=== PATIENT | female | born 1985 | race Caucasian/White ===

== ENCOUNTER 2017-08-09 08:34 | Emergency (ER) | payer SELFPAY ==
[2017-08-09] MEDS ORDERED: DEXAMETHASONE 4 MG/ML VIAL IVP ONE (09:06)
[2017-08-09] MEDS ORDERED: GABAPENTIN 300 MG CAP PO ONE (09:06)
[2017-08-09] MEDS ORDERED: DIAZEPAM 5 MG/ML 1 ML SYR IVP ONE (09:06)
--- NOTE | 2017-08-09 09:06 | EDPHY ---
H & P Stated Complaint: R lower bk pain running down leg "sciatica" x ~2 wks, no trauma Time Seen by Provider: 08/09/17 08:59 HPI/ROS: HPI: This is a 31-year-old female who presents with Chief Complaint: R lower bk pain running down leg "sciatica" x ~2 wks, no trauma Location: Right lower back Quality: Pain Duration: 2 weeks Signs and Symptoms: No bleeding,+ radiation down leg no numbness, no weakness, no tingling, no incontinence, no decreased range of motion, no swelling, no pain , no fever Timing: Severity: Context: Patient reports that she has a history of L4-L5 and L5-S1 laminectomy in 2013 in [place] is where she used to live. She presents today with 2-3 week history of gradually worsening right lower back pain that shoots down into her buttocks on the right lateral thigh and then into the anterior portion of her right lower leg down into her toes. She reports that the pain alternates between numbness and tingling in her all 5 toes. No injury or trauma. 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 She denies any urinary or bowel problems. Reports that any ranges of motion increases her pain. She is having difficulty sleeping at night. She reports that she is taking ibuprofen without any relief. Denies LOC/head injury/ neck pain/dizziness/nausea/vomiting/amnesia. Modifying Factors: See above Comment: ROS: see HPI Constitutional: No fever, no chills, no weight loss Eyes: No blurred vision Respiratory: No shortness of breath, no cough Cardiovascular: No chest pain Gastrointestinal: No nausea, no vomiting no diarrhea Genitourinary: No dysuria Extremities: No myalgias Neurologic: No weakness, no numbness Skin: No rashes Hematologic: No bruising, no bleeding MEDICAL/SURGICAL/SOCIAL HISTORY: Medical history: Generally healthy. Does not take any regular medications. Surgical history: L4,5 laminectomy 2014 Social history: Never smoked. Family history noncontributory. CONSTITUTIONAL: awake and alert, no obvious distress HEENT: Atraumatic and normocephalic. NECK: supple, no midline tenderness, flexion 45 degrees, extension 45 degrees, right and left lateral flexion 45 degrees. No meningismus. Cardiovascular: Normal S1/S2, regular rate, regular rhythm, without murmur rub or gallop. PULMONARY/CHEST: Symmetrical and nontender. no crepitus. Clear to auscultation bilaterally. Good air movement. No accessory muscle usage. ABDOMEN: Soft, nondistended, nontender, no ecchymosis. PELVIC: no pain with rocking; bilateral hips flexion 125 degrees, extension 30 degrees, with no pain internal rotation and no pain external rotation. BACK: No midline tenderness, mild right mid lumbar reproducible paraspinous muscle tenderness; no paraspinous spasm, deep tendon reflexes 2/2, mild pain with right straight leg raise, No foot drop. Achilles reflexes are equal bilaterally. Flexion, extension, lateral rotation is slightly decreased due to pain but maintains relatively good range of motion. Able to walk on heels and toes without difficulty. EXTREMITIES: 2/2 pulses, strength 5/5, DIP/PIP/MCP flexion/extension intact with good light touch sensation. no deformities, no clubbing, no cyanosis or edema. NEUROLOGICAL: no focal neuro deficits. GCS 15. Light touch sensation intact. SKIN: Warm and dry, no erythema. no rash. Good capillary refill. Source: Patient Exam Limitations: No limitations - Personal History Current Tetanus/Diphtheria Vaccine: No Current Tetanus Diphtheria and Acellular Pertussis (TDAP): No - Medical/Surgical History Hx Asthma: No Hx Chronic Respiratory Disease: No Hx Diabetes: No Hx Cardiac Disease: No Hx Renal Disease: No Hx Cirrhosis: No Hx Alcoholism: No Hx HIV/AIDS: No Hx Splenectomy or Spleen Trauma: No Other PMH: L4,5 laminectomy 2013 - Social History Smoking Status: Never smoked Constitutional: Initial Vital Signs Temperature (C) 36.5 C 08/09/17 08:37 Heart Rate 78 08/09/17 08:37 Respiratory Rate 16 08/09/17 08:37 Blood Pressure 124/90 H 08/09/17 08:37 O2 Sat (%) 97 08/09/17 08:37 O2 Delivery Mode Room Air Allergies/Adverse Reactions: Penicillins Allergy (Verified 08/09/17 08:36) Home Medications: Medication Instructions Recorded Diazepam [Valium 5 MG (*)] 5 mg PO Q8 PRN #10 tab 08/09/17 Meloxicam 08/09/17 methylPREDNISolone [Medrol Dose 1 each PO AD #0 ea 05/08/18 Angle] oxyCODONE/APAP 5/325 [Percocet 1 - 2 tab PO Q4H PRN #10 tab 08/09/17 5/325 (*)] Medical Decision Making - Diagnostics Imaging Results: Imaging Impressions Lumbar Spine X-Ray 08/09/17 09:06 Impression: 1. Levoscoliosis. 2. L4-L5 and L5-S1 mild degenerative disk disease. 3. No spondylolisthesis. 4. Consider MRI lumbar spine if clinically indicated. ED Course/Re-evaluation: Long discussion with patient regarding imaging studies. Patient prefers to be referred to Neurosurgery with outpatient follow-up and if needed MRI lumbar spine performed outpatient. Patient is not exhibiting any neurovascular compromise or signs of cauda equina syndrome. I believe it is reasonable not to obtain an emergent MRI in the emergency room at this time. Given IV Valium, IV Decadron, p.o. Gabapentin with adequate pain relief 1024: Lumbosacral x-ray my read shows narrowing at L3-L4, L5-S1 with moderate stool burden. 1026: Reassessed patient. reviewed xrays at bedside. pain adequate relief. Ambulatory at bedside without deficits. No signs of neurovascular compromise/tenting of skin/compartment syndrome/ extremities and joints examined above and below area of concern and are neurovascularly intact/epidural hematoma/diskitis. This patient was seen under the supervision of my secondary supervising physician. I evaluated care for this patient independently. Discussed this patient with Dr. Iqbal who did not see the patient. Differential Diagnosis: Back pain including but not limited to muscular pain, herniated disc, spine fracture, intra-abdominal causes and urinary tract infection. - Data Points Medications Given: Discontinued Medications Dexamethasone (Decadron Injection) 8 mg IVP EDNOW ONE Stop: 08/09/17 09:07 Last Admin: 08/09/17 09:37 Dose: 8 mg Diazepam (Valium) 5 mg IVP EDNOW ONE Stop: 08/09/17 09:07 Last Admin: 08/09/17 09:38 Dose: 5 mg Gabapentin (Neurontin) 600 mg PO EDNOW ONE Stop: 08/09/17 09:07 Last Admin: 08/09/17 09:37 Dose: 600 mg Departure - Departure Disposition: Home, Routine, Self-Care Clinical Impression: Lumbar radiculopathy, acute, History of lumbar laminectomy, Lumbar back pain with radiculopathy affecting right lower extremity, Lumbar degenerative disc disease Condition: Good Instructions: Oxycodone/Acetaminophen (By mouth), Diazepam (By mouth), Methylprednisolone (By mouth), Lumbar Radiculopathy (ED) Additional Instructions: 1) Activity: Limit activity to pain tolerance. Activity resulting in pain should be avoided. 2) Please avoid lifting objects greater than 10 lb until your back pain has resolved. 3) take Medrol Dosepak, Valium every 8 hr as needed for muscle spasm, Percocet as needed for severe breakthrough pain. 4) Follow-up with Neurosurgery in the next 7-10 days at which time they will recommend with you conservative management versus MRI lumbar spine versus further adjuvant therapy. Return to the ER immediately if you have new or worsening back pain, fevers/ chills, flu like symptoms, incontinence or inability to urinate or defecate, weakness, paralysis, or any other symptom that concerns you Referrals: Martínez Caballero MD [Medical Doctor] - As per Instructions Stand Alone Forms: Work Excuse Prescriptions: Diazepam [Valium 5 MG (*)] 5 mg PO Q8 PRN #10 tab PRN Reason: Spasms methylPREDNISolone [Medrol Dose Angel] 1 each PO AD #0 ea oxyCODONE/APAP 5/325 [Percocet 5/325 (*)] 1 - 2 tab PO Q4H PRN #10 tab PRN Reason: Pain, Severe
[2017-08-09 10:36] VITALS: BP 118/82
== END 2017-08-09 10:34 | disposition home or self-care (01) ==
DX: M51.16 Intervertebral disc disorders with radiculopathy, lumbar region (principal); Z98.890 Other specified postprocedural states
CPT/HCPCS: 96374; J1100; J3360

== ENCOUNTER 2018-04-23 15:52 | Emergency (ER) | payer SELFPAY ==
[2018-04-23] MEDS ORDERED: KETOROLAC 15 MG/1 ML SDV IVP ONE (16:37)
[2018-04-23] MEDS ORDERED: CYCLOBENZAPRINE 10 MG TAB PO ONE (16:37)
[2018-04-23] MEDS ORDERED: ACETAMINOPHEN 500 MG TAB PO ONE (16:37)
[2018-04-23] MEDS ORDERED: LIDOCAINE 4%/MENTHOL 1% PATCH TD ONE (16:37)
[2018-04-23] MEDS ORDERED: DEXAMETHASONE 4 MG/ML VIAL IVP ONE (16:37)
--- NOTE | 2018-04-23 17:13 | EDPHY ---
H & P Time Seen by Provider: 04/23/18 16:21 HPI/ROS: CHIEF COMPLAINT: Back pain, sciatic pain HISTORY OF PRESENT ILLNESS: 32-year-old female with a history of an L4-L5 and L5-S1 laminectomy presents reporting pain in the right lower back with discomfort which radiates into her buttock, down the posterior aspect of her thigh, into the calf, and across the top of the foot. She also reports numbness and tingling into the right leg and right foot. No urinary complaints. No incontinence, no difficulty with bowel movements, no constipation. She states that since her surgery, over the last 2 years, she has had intermittent episodes of flares of this sciatic type pain. Patient reports she thinks that this sciatic pain seems to occur when she is under stress. No specific back trauma that she can identify. She has been taking ibuprofen with minimal relief. She took an oxycodone yesterday. No significant weakness in the leg. No intercurrent trauma, no falls, no concerns about bony injuries. No urinary complaints. REVIEW OF SYSTEMS: A comprehensive 10 system review of systems was reviewed and is otherwise negative aside from elements mentioned in the history of present illness and medical decision making. PAST MEDICAL HISTORY: Prior back surgery. SOCIAL HISTORY: Nonsmoker. Reports she recently broke up with her long-time boyfriend. General appearance: Uncomfortable appearing. Preferring to lay on her left side. HEENT: Benign. Chest: Lungs are clear. Heart: Regular rate and rhythm. Focused examination of back: No trauma is noted. No tenderness to palpation along the spine. Tenderness to the right of L5. Neurological exam: Straight leg raise test is negative bilaterally. Hip flexion, knee extension, knee flexion, dorsiflexion and plantar flexion are 5/ 5 bilaterally. EHL 5 over 5. Sensation is intact to light touch throughout. 2 + knee and ankle jerk bilaterally. Vascular exam: Dorsalis pedis and posterior tibial pulses are intact. Brisk capillary refill. Smoking Status: Never smoked Constitutional: Initial Vital Signs Temperature (C) 36.9 C 04/23/18 15:56 Heart Rate 66 04/23/18 15:56 Respiratory Rate 18 04/23/18 15:56 Blood Pressure 141/94 H 04/23/18 15:56 O2 Sat (%) 97 04/23/18 15:56 O2 Delivery Mode Room Air Allergies/Adverse Reactions: Penicillins Allergy (Verified 08/09/17 08:36) Home Medications: Medication Instructions Recorded Cyclobenzaprine [Flexeril 10 MG 10 mg PO TID PRN #20 tab 04/23/18 (RX)] methylPREDNISolone [Medrol Dose 4 mg PO DAILY #1 each 04/23/18 Angel] Medical Decision Making ED Course/Re-evaluation: 32-year-old female presenting with sciatic type radicular pain. On examination she has good strength, although movement of the leg causes increase in the pain. No weakness. No numbness or tingling. Reflexes are intact. Patient received Toradol IM, Flexeril p.o., Tylenol p. O., and a lidocaine patch. She declined gabapentin as she states it makes her quite dizzy. On re-examination she reports some improvement in her pain but still feels like there is significant spasm. She received Valium 5 mg p.o.. She was discharged with a friend and received hydrocodone as a prepack. She is given referral to Neurosurgery. Please see the discharge instructions. Differential Diagnosis: After history was obtained and physical exam performed, the differential for back pain was considered including but not limited to muscular pain, herniated disc, spine fracture, intra-abdominal causes, and urinary tract infection. - Data Points Medications Given: Discontinued Medications Acetaminophen (Tylenol) 1,000 mg PO EDNOW ONE Stop: 04/23/18 16:38 Last Admin: 04/23/18 16:55 Dose: 1,000 mg Hydrocodone Bitart/Acetaminophen ([place] 5/325mg Prepack#6) 1 btl TAKEHOME EDNOW ONE Stop: 04/23/18 17:41 Last Admin: 04/23/18 17:58 Dose: 1 btl Cyclobenzaprine HCl (Flexeril) 10 mg PO EDNOW ONE Stop: 04/23/18 16:38 Last Admin: 04/23/18 16:56 Dose: 10 mg Cyclobenzaprine HCl (Flexeril 10 Mg Prepack#3) 1 btl TAKEHOME EDNOW ONE Stop: 04/23/18 17:41 Last Admin: 04/23/18 17:59 Dose: 1 btl Dexamethasone (Decadron Injection) 8 mg IVP EDNOW ONE Stop: 04/23/18 16:38 Last Admin: 04/23/18 16:56 Dose: 8 mg Diazepam (Valium) 5 mg PO EDNOW ONE Stop: 04/23/18 17:41 Last Admin: 04/23/18 17:57 Dose: 5 mg Ketorolac Tromethamine (Toradol) 15 mg IVP EDNOW ONE Stop: 04/23/18 16:38 Last Admin: 04/23/18 16:56 Dose: 15 mg Miscellaneous Medication (Icy Hot Lidocaine/Menthol 4%/1% Patch) 1 patch TD EDNOW ONE Stop: 04/23/18 16:38 Last Admin: 04/23/18 17:01 Dose: 1 patch Departure - Departure Disposition: Home, Routine, Self-Care Clinical Impression: Sciatica Qualifiers: Laterality: right Qualified Code(s): M54.31 - Sciatica, right side Condition: Good Instructions: Hydrocodone/Acetaminophen (By mouth), Cyclobenzaprine (By mouth) , Sciatica (ED), Lumbar Radiculopathy (ED), Lower Back Exercises (ED) Additional Instructions: Musculoskeletal pain is often treated with anti-inflammatories, muscle relaxants , and pain medications. 1. I recommend Ibuprofen (Motrin, Advil) or Naproxen Sodium (Aleve) for pain and anti-inflammatory effects. You may take either one, but do not take both. Your dose is: Ibuprofen 600 mg every 6-8 hours with food. OR Naproxen Sodium (Aleve) 220 mg every 12 hours. Please take the 1st dose of ibuprofen no sooner than 11:00 p.m.. You have also been given a prescription for a Medrol Dosepak to use as directed to treat inflammation. Please begin taking this tomorrow. 2. For muscle relaxation, you been given a prescription of Flexeril. Please take this as directed. It may make you sleepy. 3. For pain relief, I suggest high-dose Tylenol (650mg-1000mg of Tylenol) up to 3 times a day. Not exceed 3000 mg in a 24 hour period. I also suggest lidocaine patches. 4% lidocaine patches are available over-the- counter. Apply ice for 20-30 minutes every 2-3 hours for the next 48 hours. After 48 hours, a heating pad or hot tub may feel better. Please follow up with your primary care physician if you're not improving as expected in the next several days. You have also been given a referral to Neurosurgery. Consider physical therapy or chiropractic followup for persistent discomfort. Return to the emergency department if you experience significantly worsening pain, pain radiating into the legs, weakness, numbness or tingling, difficulties with bowel or bladder, fever, nausea, vomiting, or other concerns. Referrals: NONE *PRIMARY CARE P,. [Primary Care Provider] - As per Instructions Martínez Caballero MD [Medical Doctor] - As per Instructions Prescriptions: Cyclobenzaprine [Flexeril 10 MG (RX)] 10 mg PO TID PRN #20 tab PRN Reason: Muscle Spasms methylPREDNISolone [Medrol Dose Angel] 4 mg PO DAILY #1 each
[2018-04-23] MEDS ORDERED: CYCLOBENZAPRINE 10MG PREPACK#3 BTL TAKEHOME ONE (17:40)
[2018-04-23] MEDS ORDERED: HYDROCOD/APAP 5/325 PREPACK#6 BTL TAKEHOME ONE (17:40)
[2018-04-23] MEDS ORDERED: DIAZEPAM 5 MG TAB PO ONE (17:40)
[2018-04-23 18:04] VITALS: BP 132/62
[2018-04-23] MEDS ORDERED: PATCH REMOVAL 1 EA PATCH TD SCH (21:00)
== END 2018-04-23 18:04 | disposition home or self-care (01) ==
DX: M54.41 Lumbago with sciatica, right side (principal)
CPT/HCPCS: 96374; J1100; J1885

== ENCOUNTER 2018-06-12 12:46 | Emergency (ER) | payer MEDICAID ==
--- NOTE | 2018-06-12 13:46 | EDPHY ---
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, L4,5 laminectomy 2013 - Social History Smoking Status: Never smoked Time Seen by Provider: 06/12/18 13:39 HPI/ROS: HPI: This is a 32-year-old female who presents with Chief Complaint: Lower back pain and right radiculopathy Location: Lower back Quality: Pain Duration: Several weeks Signs and Symptoms: No bleeding, + radiation, + numbness, no weakness, + tingling, no incontinence, no decreased range of motion, no swelling, + pain, no fever Timing: Worse in the last few days Severity: 11/11 Context: Patient reports that 4 years ago in [place] she had a micro diskectomy and laminectomy at L4-L5 presents today with lower back pain that radiates into her right leg. She reports that her foot and toes are numb and tingling. She reports that flexion and extension increases her pain. She is ambulatory without any deficits. She went to follow up with her orthopedist/ Spine doctor and he is no longer with the practice. She reports that 1 week ago she fell while skiing and believes that she may have caused "in injury to the disc below her her prior surgery." Denies LOC/head injury/neck pain/ dizziness/nausea/vomiting/amnesia/change in bowel or bladder habits. Modifying Factors: Mobic Comment: ROS: A comprehensive 10 system review of systems is otherwise negative aside from elements mentioned in the history of present illness. 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 CONSTITUTIONAL: Well-developed, well-nourished young adult white female sitting cross-legged on the ER stretcher, awake and alert, no obvious distress HEENT: Atraumatic and normocephalic. NECK: supple, no midline tenderness. Cardiovascular: Normal S1/S2, regular rate, regular rhythm, without murmur rub or gallop. PULMONARY/CHEST: Symmetrical and nontender. no crepitus. Clear to auscultation bilaterally. Good air movement. No accessory muscle usage. ABDOMEN: Soft, nondistended, nontender, no ecchymosis. PELVIC: no pain with rocking; bilateral hips flexion 125 degrees, extension 30 degrees, with no pain internal rotation and no pain external rotation. BACK: Mild midline tenderness, no paraspinous spasm, deep tendon reflexes 2/2, moderate pain with straight leg raise, No foot drop. Achilles reflexes are equal bilaterally. Able to walk on toes with minimal difficulty. EXTREMITIES: 2/2 pulses, strength 5/5, DIP/PIP/MCP flexion/extension intact with good light touch sensation. no deformities, no clubbing, no cyanosis or edema. NEUROLOGICAL: no focal neuro deficits. GCS 15. Light touch sensation intact. SKIN: Warm and dry, tattoo lower back, no erythema. no rash. Good capillary refill. (Sole Vaughn) Constitutional: Initial Vital Signs Temperature (C) 36.6 C 06/12/18 13:02 Heart Rate 86 06/12/18 13:02 Respiratory Rate 16 06/12/18 13:02 Blood Pressure 131/98 H 06/12/18 13:02 O2 Sat (%) 94 06/12/18 13:02 O2 Delivery Mode Room Air Allergies/Adverse Reactions: cephalexin [From Keflex] Allergy (Verified 06/12/18 13:05) latex Allergy (Verified 06/12/18 13:06) Penicillins Allergy (Verified 06/12/18 13:05) Home Medications: Medication Instructions Recorded Cyclobenzaprine [Flexeril 10 MG 10 mg PO TID PRN #15 tab 06/12/18 (*)] Meloxicam 06/12/18 methylPREDNISolone [Medrol Dose 1 each PO AD #1 ea 06/12/18 Angel] oxyCODONE/APAP 5/325 [Percocet 1 - 2 tab PO Q4H PRN #10 tab 06/12/18 5/325 (*)] Medical Decision Making ED Course/Re-evaluation: Vital signs reviewed and stable upon arrival. Due to midline tenderness; history of back surgery; MRI lumbar spine ordered 1534: Called by radiologist, Dr. Sanchez, who reports MRI of the lumbar spine shows L4, L5, L6 disc herniation with moderate central canal stenosis. There is an old compression fracture L5 noted. No signs of neurovascular compromise/tenting of skin/compartment syndrome/ extremities and joints examined above and below area of concern and are neurovascularly intact/cauda equina syndrome/saddle anesthesia. Ambulating without difficulty at discharge. Neurosurgery follow-up. This patient was seen under the supervision of my secondary supervising physician. I evaluated care for this patient independently. (Sole Vaughn) The patient was evaluated and managed by the physician warehouse assistant. I have reviewed this chart and I agree with the findings and plan of care as documented , as indicated by my signature. I am the secondary supervising physician. ( Jacquelyn Gallegos) Differential Diagnosis: Back pain including but not limited to muscular pain, herniated disc, spine fracture, intra-abdominal causes and urinary tract infection. (Sole Vaughn) Departure - Departure Disposition: Home, Routine, Self-Care Clinical Impression: L4-L5 disc bulge, Herniation of intervertebral disc between L5 and S1, Lumbar canal stenosis, History of compression fracture of spine Condition: Good Instructions: Oxycodone/Acetaminophen (By mouth), Cyclobenzaprine (By mouth), Methylprednisolone (By mouth), Lumbar Disc Herniation (ED) Additional Instructions: Take Medrol Dosepak as directed. Take Tylenol 650 mg every 4 hours and/or Ibuprofen 600 mg every 8 hours with food as needed for pain. Use Percocet every 6 hours as needed for severe/break through pain. Do not use Tylenol and Percocet concomitantly. Use Flexeril every 6-8 hours as needed for muscle spasm. Follow up with Neurosurgery in 5-7 days at which time they will evaluate and recommend with you if conservative management versus surgery is indicated. Referrals: Martínez Caballero MD [Medical Doctor] - As per Instructions Prescriptions: Cyclobenzaprine [Flexeril 10 MG (*)] 10 mg PO TID PRN #15 tab PRN Reason: Spasms methylPREDNISolone [Medrol Dose Angel] 1 each PO AD #1 ea oxyCODONE/APAP 5/325 [Percocet 5/325 (*)] 1 - 2 tab PO Q4H PRN #10 tab PRN Reason: Pain, Severe
[2018-06-12 16:09] VITALS: BP 126/85
== END 2018-06-12 16:29 | disposition home or self-care (01) ==
DX: M51.27 Other intervertebral disc displacement, lumbosacral region (principal); M51.26 Other intervertebral disc displacement, lumbar region; M48.061 Spinal stenosis, lumbar region without neurogenic claudication

== ENCOUNTER 2018-06-21 12:46 | Day surgery (SDC) | payer MEDICAID ==
[2018-06-21] MEDS ORDERED: NALOXONE HCL 0.4 MG/ML INJ IVP PRN (12:53)
[2018-06-21] MEDS ORDERED: MIDAZOLAM 2 MG/2 ML VIAL IVP PRN (12:53)
[2018-06-21] MEDS ORDERED: FLUMAZENIL 0.5 MG/5 ML MDV IVP PRN (12:53)
[2018-06-21] MEDS ORDERED: fentaNYL 100 MCG/2 ML INJ IVP PRN (12:53)
[2018-06-21] MEDS ORDERED: NS 1,000 ML IV SCH (13:00)
--- NOTE | 2018-06-21 13:45 | PDRADPRE ---
Radiology History & Physical Indication for procedure: back pain Home medications: Meloxicam 15 mg PO DAILY 06/12/18 [Last Taken 1 Day Ago ~06/20/18] Allergies/Adverse Reactions: cephalexin [From Keflex] Allergy (Verified 06/12/18 13:05) latex Allergy (Verified 06/12/18 13:06) Penicillins Allergy (Verified 06/12/18 13:05) Mental status: A&Ox3
--- NOTE | 2018-06-21 13:45 | PDPROPOC ---
Sedation Plan of Care ASA Classification: ASA 2 Mallampati Score: Class 2 Mallampati Reference Image:
[2018-06-21] MEDS ORDERED: ONDANSETRON 4 MG/2 ML VIAL IVP PRN (14:30)
[2018-06-21] MEDS ORDERED: ACETAMINOPHEN 325 MG TAB PO PRN (14:30)
--- NOTE | 2018-06-21 14:30 | PDRADPN ---
Radiology Procedure Note Date of Procedure: 06/21/18 Radiologist: Katie Santacruz Anesthesia: IV Sedation Pre-op Diagnosis: right leg pain and paresthesia Procedure: L4-L5 JOSHUA, right L5 SNRB Inf/Abcess present in the surg proc area at time of surgery?: No
[2018-06-21 15:36] VITALS: BP 116/84
[2018-06-23] MEDS ORDERED: IOPAMIDOL (ISOVUE-M 300) 15 ML VIAL ONE (08:00)
== END 2018-06-21 15:53 | disposition home or self-care (01) ==
LOC: FIMAGING 12:46
PROVIDERS: ATTEND Radiology Diagnostic Radiology
PROC: 3E0S3BZ Introduction of Anesthetic Agent into Epidural Space, Percutaneous Approach (ICD-10-PCS; principal; 2018-06-21 14:40)
PROC: BR191ZZ Fluoroscopy of Lumbar Spine using Low Osmolar Contrast (ICD-10-PCS; principal; 2018-06-21 14:40)
PROC: 3E0S33Z Introduction of Anti-inflammatory into Epidural Space, Percutaneous Approach (ICD-10-PCS; principal; 2018-06-21 14:40)
DX: M54.16 Radiculopathy, lumbar region (principal)
CPT/HCPCS: J2250; J2310; J3010; Q9967

== ENCOUNTER 2018-07-04 23:23 | Emergency (ER) | payer MEDICAID ==
--- NOTE | 2018-07-04 23:41 | EDPHY ---
H & P Stated Complaint: back/leg pain Time Seen by Provider: 07/04/18 23:41 HPI/ROS: HPI CHIEF COMPLAINT: Back pain HISTORY OF PRESENT ILLNESS: Patient is a 32-year-old female, she has a history of radicular back pain. She had a laminectomy L4-L5 years ago, suffers from back pain and sciatica. She recently in June 22 had a injection in her back for back pain. Over the past 2 days she has had increasing back pain, describes sharp stabbing radiating down her right gluteus, down her right leg. She denies any fever, denies saddle anesthesia, denies leg weakness, denies bowel or bladder incontinence. No signs of acute cauda equina on exam. Dates for past 2 days she has had increasing pain. She has not take anything for this she denies taking her meloxicam and Flexeril as prescribed. Past Medical History: L4/L5 laminectomy, sciatica, back pain Past Surgical History: L4-L5 laminectomy, neuroma removal from knee Social History: Denies drugs, denies alcohol denies tobacco. Family History: Denies ROS REVIEW OF SYSTEMS: 10 Systems were reviewed and negative with the exception of the elements mentioned in the history of present illness. Exam Constitutional nontoxic, nad, vss, triage nursing summary reviewed, vital signs reviewed, awake/alert. Eyes normal conjunctivae and sclera, EOMI, PERRLA. HENT normal inspection, atraumatic, moist mucus membranes, no epistaxis, neck supple/ no meningismus, no raccoon eyes. Respiratory clear to auscultation bilaterally, normal breath sounds, no respiratory distress, no wheezing. Cardiovascular rate normal, regular rhythm, no murmur, no edema, distal pulses normal. Gastrointestinal soft, non-tender, no rebound, no guarding, normal bowel sounds, no distension, no pulsatile mass. Genitourinary no CVA tenderness. Musculoskeletal no significant midline back pain, old scar present lumbar spine , mild tender palpation paravertebral lumbar spine, no leg weakness, good distal pulse, good reflexes, able to range her legs appropriately, left off bed without any weakness, no midline vertebral tenderness, full range of motion, no calf swelling, no tenderness of extremities, no meningismus, good pulses, neurovascularly intact. Skin pink, warm, & dry, no rash, skin atraumatic. Neurologic awake, alert and oriented x 3, AAOx3, moves all 4 extremities equally, motor intact, sensory intact, CN II-XII intact, normal cerebellar, normal vision, normal speech. Psychiatric normal mood/affect. Denies SI or HI. Heme/Lymph/Immune no lymphadenopathy. Differential Diagnosis: Includes but is not limited to in a particular order lumbar radiculopathy, sciatica, nerve root compression, annular tear, compression fracture, sciatica, acute on chronic pain Medical Decision Making: Plan for this patient IV establishment basic blood draw, IV fluids, IV Decadron IV Toradol, IV Dilaudid for pain control re- evaluate. X-ray lumbar spine. Re-evaluation: Patient denies Alcohol tonight. She got IV fluids/iv dilaudid for acute pain control as she appears in pain when she arrived. However, Patient's Serum alcohol level 434 at 1:00 a.m.. 1:00 a.m. patient here in the emergency room with back pain. Denies any trauma. She received 0.5 mg IV Dilaudid Decadron and Toradol earlier. She denies any alcohol intake tonight on initial exam/evaluation. However did notice while examining her she had somewhat of an alcohol odor. Her serum alcohol level resulted at 434. I asked her multiple times if she had anything to drink and she denied this. I will observe her here until she is more sober can be safe from discharge, however at this time 1:00 a.m. She is laughing and giggling in the room with her friend, not sleepy and does not appear very intoxicated despite serum level. She does not appear to be in any distress or significant pain. She is moving both legs appropriately. No leg weakness on exam. X-ray of the lumbar spine negative for acute fracture malalignment. Image interpreted by myself. 0415AM: Patient requesting multiple times to be discharged. She is clinically sober on exam. Her friend at bedside would like to take her home. I did encourage her to stay in the Er for re-evaluation this morning of her back pain, given how high her serum alcohol level was when she came in. However she is refusing to do so, and state she wants to leave and does not want to stay in the Er any-further. It is noted upon arrival: She has no red flags on exam no weakness of her legs, no saddle anesthesia, no fever, no bowel bladder incontinence. Given her high alcohol intoxication when she initially arrived here 434 around 1 :00 a.m. She has sobered nicely here in the emergency room, was kept for close to 5 hrs for observation. She now answers questions appropriately she has a stable gait without ataxia. We have given her alcohol resources, I also offered her to go to detox however she has declined this. She wants to go home with her friend at bedside. As for her back pain, she denies severe back pain at this time. No leg weakness on exam, normal gait. She will need to sign out AMA, as I wanted to keep her further to re-evaluated her. However she declined this and is sober enough to be discharged safely. I Do recommend she follows up with primary care doctor about back pain. Additionally alcohol cessation counseling provided. Alcohol resources provided. Counseled and gave resources for alcohol. 0425AM: patient ambulted with a steady gait without assistance out of the Er. Source: Patient - Personal History LMP (Females 10-55): Now Current Tetanus Diphtheria and Acellular Pertussis (TDAP): Yes - Medical/Surgical History Hx Asthma: No Hx Chronic Respiratory Disease: No Hx Diabetes: No Hx Cardiac Disease: No Hx Renal Disease: No Hx Cirrhosis: No Hx Alcoholism: No Hx HIV/AIDS: No Hx Splenectomy or Spleen Trauma: No Other PMH: neuroma removed from L knee, L4,5 laminectomy 2014 - Social History Smoking Status: Former smoker Constitutional: Initial Vital Signs Temperature (C) 37 C 07/04/18 23:26 Heart Rate 93 07/04/18 23:26 Respiratory Rate 20 07/04/18 23:26 Blood Pressure 143/104 H 07/04/18 23:26 O2 Sat (%) 99 07/04/18 23:26 O2 Delivery Mode Room Air O2 (L/minute) 2 Allergies/Adverse Reactions: cephalexin [From Keflex] Allergy (Verified 07/04/18 23:26) latex Allergy (Verified 07/04/18 23:26) Penicillins Allergy (Verified 07/04/18 23:26) Home Medications: Medication Instructions Recorded Cyclobenzaprine [Flexeril 10 MG 10 mg PO TID PRN #15 tab 06/12/18 (*)] Meloxicam 15 mg PO DAILY 06/12/18 methylPREDNISolone [Medrol Dose 1 each PO AD #1 ea 06/12/18 Angel] oxyCODONE/APAP [Percocet 1 - 2 tab PO Q4H PRN #10 tab 06/12/18325 (*)] Medical Decision Making - Data Points Laboratory Results: Laboratory Results 07/05/18 00:07 07/05/18 00:07 07/05/18 07/05/18 00:07 00:07 WBC 6.75 10^3/uL 10^3/uL (3.80-9.50) RBC 4.75 10^6/uL 10^6/uL (4.18-5.33) Hgb 15.4 g/dL g/dL (12.6-16.3) Hct 43.8 % % (38.0-47.0) MCV 92.2 fL fL (81.5-99.8) MCH 32.4 pg pg (27.9-34.1) MCHC 35.2 g/dL g/dL (32.4-36.7) RDW 12.2 % % (11.5-15.2) Plt Count 151 10^3/uL 10^3/uL (150-400) MPV 10.0 fL fL (8.7-11.7) Neut % (Auto) 66.3 % % (39.3-74.2) Lymph % (Auto) 21.3 % % (15.0-45.0) [place] % (Auto) 11.4 % % (4.5-13.0) Eos % (Auto) 0.1 % L % (0.6-7.6) Baso % (Auto) 0.6 % % (0.3-1.7) Nucleat RBC Rel Count 0.0 % % (0.0-0.2) Absolute Neuts (auto) 4.47 10^3/uL 10^3/uL (1.70-6.50) Absolute Lymphs (auto) 1.44 10^3/uL 10^3/uL (1.00-3.00) Absolute Monos (auto) 0.77 10^3/uL 10^3/uL (0.30-0.80) Absolute Eos (auto) 0.01 10^3/uL L 10^3/uL (0.03-0.40) Absolute Basos (auto) 0.04 10^3/uL 10^3/uL (0.02-0.10) Absolute Nucleated RBC 0.00 10^3/uL 10^3/uL (0-0.01) Immature Gran % 0.3 % % (0.0-1.1) Immature Gran # 0.02 10^3/uL 10^3/uL (0.00-0.10) Sodium 146 mEq/L H mEq/L (135-145) Potassium 4.1 mEq/L mEq/L (3.5-5.2) Chloride 106 mEq/L mEq/L (97-110) Carbon Dioxide 20 mEq/l L mEq/l (22-31) Anion Gap 20 mEq/L H mEq/L (6-14) BUN 16 mg/dL mg/dL (7-23) Creatinine 0.7 mg/dL mg/dL (0.6-1.0) Estimated GFR > 60 Glucose 90 mg/dL mg/dL (70-100) Calcium 9.4 mg/dL mg/dL (8.5-10.4) Ethyl Alcohol 434 mg/dL H* mg/dL (0-10) Medications Given: Discontinued Medications Dexamethasone (Decadron Injection) 10 mg IVP EDNOW ONE Stop: 07/05/18 00:00 Last Admin: 07/05/18 00:08 Dose: 10 mg Hydromorphone HCl (Dilaudid) 0.5 mg IVP EDNOW ONE Stop: 07/04/18 23:59 Last Admin: 07/05/18 00:08 Dose: 0.5 mg Sodium Chloride (Ns) 1,000 mls @ 0 mls/hr IV EDNOW ONE; Wide Open PRN Reason: Protocol Stop: 07/04/18 23:59 Last Admin: 07/05/18 00:08 Dose: 1,000 mls Ketorolac Tromethamine (Toradol) 15 mg IVP EDNOW ONE Stop: 07/05/18 00:00 Last Admin: 07/05/18 00:08 Dose: 15 mg Ondansetron HCl (Zofran) 4 mg IVP EDNOW ONE Stop: 07/04/18 23:59 Last Admin: 07/05/18 00:08 Dose: 4 mg Departure - Departure Disposition: Against Medical Advice Clinical Impression: Alcohol intoxication Qualifiers: Complication of substance-induced condition: uncomplicated Qualified Code(s): F10.920 - Alcohol use, unspecified with intoxication, uncomplicated Back pain Qualifiers: Back pain location: low back pain Chronicity: unspecified Back pain laterality : right Sciatica presence: with sciatica Sciatica laterality: sciatica of right side Qualified Code(s): M54.41 - Lumbago with sciatica, right side Condition: Good Instructions: Alcohol Intoxication (ED), Acute Low Back Pain (ED) Additional Instructions: 1. refrain from drinking alcohol. 2. return to the er if worsening symptoms. 3. Please follow up with the resources we have provided you. Referrals: NONE *PRIMARY CARE P,. [Primary Care Provider] - As per Instructions [facility],. [Clinic] - As per Instructions
[2018-07-04] MEDS ORDERED: ONDANSETRON 4 MG/2 ML VIAL IVP ONE (23:58)
[2018-07-04] MEDS ORDERED: NS 1,000 ML IV ONE (23:58)
[2018-07-04] MEDS ORDERED: HYDROmorphONE/DILAUDID 2 MG/ML INJ IVP ONE (23:58)
[2018-07-04] MEDS ORDERED: KETOROLAC 15 MG/1 ML SDV IVP ONE (23:59)
[2018-07-04] MEDS ORDERED: DEXAMETHASONE 10 MG/ML VIAL IVP ONE (23:59)
[2018-07-05 00:19] LABS: PLATELET COUNT 151 10^3/uL (150-400)
[2018-07-05 04:35] VITALS: BP 123/70
== END 2018-07-05 04:35 | disposition left against medical advice (07) ==
DX: M54.41 Lumbago with sciatica, right side (principal); F10.920 Alcohol use, unspecified with intoxication, uncomplicated; E86.9 Volume depletion, unspecified
CPT/HCPCS: 96374; G0480; J1100; J1170; J1885; J2405